=== PATIENT | female | born 1940 | race Asian ===

== ENCOUNTER 2019-06-13 15:07 | Inpatient (IN) | payer MEDICARE, OTHER ==
[~2019-06-13] VITALS: Ht 152.4 cm; Wt 39.5 kg
--- NOTE | 2019-06-13 15:24 | NUR ---
PT IS IN ROOM #2A. DR RUIZ EVALUATED THE PT.
[2019-06-13] MEDS ORDERED: NITROGLYCERIN 0.4 MG/TAB BOTTLE SL ONE (15:30)
[2019-06-13 15:32] LABS: BASOPHILS # (AUTO) 0.2 K/uL (0.0-8.0); BASOPHILS % (AUTO) 0.9 % (0.0-2.0); EOSINOPHILS # (AUTO) 0.2 K/uL (0.0-0.7); HEMOGLOBIN 8.5 g/dL (10.9-14.3); LYMPHOCYTES # (AUTO) 2.2 K/uL (20.0-40.0); LYMPHOCYTES % (AUTO) 11.7 % (20.5-51.5); MEAN CORPUSCULAR HGB CONC 33 g/dL (32.3-35.6); MEAN CORPUSCULAR VOLUME 109.8 fL (75.5-95.3); MONOCYTES # (AUTO) 0.7 K/uL (2.0-10.0); MONOCYTES % (AUTO) 3.7 % (0.0-11.0); NEUTROPHILS # (AUTO) 15.4 K/uL (1.8-8.9); NEUTROPHILS % (AUTO) 82.7 % (38.5-71.5); PLATELET COUNT (AUTO) 281 K/uL (179-408); WHITE BLOOD COUNT (AUTO) 18.6 K/uL (3.8-11.8)
[2019-06-13 15:40] LABS: CREATININE 0.8 mg/dL (0.6-1.3); POTASSIUM 4.2 mmol/L (3.5-5.1)
[2019-06-13] MEDS ORDERED: ISOS30TA6 PO (15:43)
[2019-06-13] MEDS ORDERED: HYDR500C2 PO (15:43)
[2019-06-13] MEDS ORDERED: LORA10TA7 PO (15:43)
[2019-06-13] MEDS ORDERED: DIGO125T PO (15:43)
[2019-06-13] MEDS ORDERED: OMEG1CAP PO (15:43)
[2019-06-13] MEDS ORDERED: LEVO100T PO (15:43)
[2019-06-13] MEDS ORDERED: CALC-1204 PO (15:43)
[2019-06-13 15:47] LABS: RED BLOOD CELL COUNT(AUTO) 2.37 MIL/uL (3.63-4.92)
[2019-06-13] MEDS ORDERED: MAGNESIUM HYDROXIDE 30 ML LIQUID UDC PO PRN (17:15)
[2019-06-13] MEDS ORDERED: Z GUARD REMEDY PASTE 57 GM TUBE TOP PRN (17:15)
[2019-06-13] MEDS ORDERED: HYDROCODONE/APAP 5-325MG TABLET PO PRN (17:15)
[2019-06-13] MEDS ORDERED: ACETAMINOPHEN 325 MG TABLET PO PRN (17:15)
[2019-06-13] MEDS ORDERED: MORPHINE SULFATE 2 MG/1 ML DISP.SYRIN IV ONE (17:15)
[2019-06-13] MEDS ORDERED: ONDANSETRON 4 MG/2 ML VIAL IV PRN (17:15)
[2019-06-13 17:29] LABS: BAND % (MANUAL) 2 % (0-10); EOSINOPHILS % (MANUAL) 2 % (0-8); LYMPHOCYTES % (MANUAL) 14 % (20-40); MONOCYTES % (MANUAL) 1 % (2-10); MYELOCYTES % 1 % (0-0); NEUTROPHILS % (MANUAL) 80 % (42-75)
--- NOTE | 2019-06-13 17:50 | NUR ---
report was given to test and turn up technician. pt was transfered to room #319.
[2019-06-13 18:25] VITALS: BP 129/46
--- NOTE | 2019-06-13 20:00 | NUR ---
Admitted 79y/o F under the care of Soren KNOWLES. Dx: r/o ACS. Patient is A&Ox4. No complaints of chest pain at this time. LFA heplock intact and patent. Oriented patient to her room and w/ the use of call light. Admission protocol initiated. Safety measures observed. Call light in reach
[2019-06-13 20:58] VITALS: BP 112/49
[2019-06-13] MEDS ORDERED: ATORVASTATIN 20 MG TABLET PO SCH (21:00)
[2019-06-14 00:47] VITALS: BP 108/50
[2019-06-14 04:48] VITALS: BP 107/46
[2019-06-14 06:34] LABS: BASOPHILS # (AUTO) 0.2 K/uL (0.0-8.0); BASOPHILS % (AUTO) 1.2 % (0.0-2.0); EOSINOPHILS # (AUTO) 0.1 K/uL (0.0-0.7); EOSINOPHILS % (AUTO) 0.8 % (0.0-7.0); HEMATOCRIT 23.8 % (31.2-41.9); HEMOGLOBIN 7.7 g/dL (10.9-14.3); LYMPHOCYTES # (AUTO) 1.8 K/uL (20.0-40.0); LYMPHOCYTES % (AUTO) 12.4 % (20.5-51.5); MEAN CORPUSCULAR HGB CONC 33 g/dL (32.3-35.6); MEAN CORPUSCULAR VOLUME 107.5 fL (75.5-95.3); MONOCYTES # (AUTO) 0.5 K/uL (2.0-10.0); MONOCYTES % (AUTO) 3.6 % (0.0-11.0); NEUTROPHILS # (AUTO) 12.2 K/uL (1.8-8.9); PLATELET COUNT (AUTO) 263 K/uL (179-408); WHITE BLOOD COUNT (AUTO) 14.8 K/uL (3.8-11.8)
[2019-06-14 06:41] LABS: RED BLOOD CELL COUNT(AUTO) 2.21 MIL/uL (3.63-4.92)
--- NOTE | 2019-06-14 06:41 | NUR ---
Patient slept well throughout the night. No complaints of chest pain at this time. NPO post midnight for scheduled cardiac CTA at [facility] today at around 12noon. All needs attended. Will endorse accordingly
[2019-06-14 06:51] LABS: CREATININE 0.9 mg/dL (0.6-1.3); MAGNESIUM 2.3 mg/dL (1.8-2.4); PHOSPHOROUS 4.8 mg/dL (2.5-4.9); POTASSIUM 3.8 mmol/L (3.5-5.1)
[2019-06-14] MEDS ORDERED: LEVOTHYROXINE SODIUM 100 MCG TABLET PO SCH (07:00)
[2019-06-14] MEDS ORDERED: LEVOTHYROXINE SODIUM 125 MCG TABLET PO SCH (07:00)
--- NOTE | 2019-06-14 08:00 | NUR ---
Pt. resting in bed alert oriented x4. IV in L Forearm 20 gauge intact patent saline lock. Pt. is on NPO diet since midnight for cardiac cta today at 12 pm. Pt. on room air. Pt. denies pain/ discomfort. Pt. denies SOB/ difficulty breathing. Pt. on tele monitor sinus em HR 50. Safety measures in place. Call light within reach. Will continue to monitor pt.
[2019-06-14 08:54] LABS: BAND % (MANUAL) 2 % (0-10); EOSINOPHILS % (MANUAL) 1 % (0-8); LYMPHOCYTES % (MANUAL) 13 % (20-40); MONOCYTES % (MANUAL) 4 % (2-10); NEUTROPHILS % (MANUAL) 80 % (42-75)
[2019-06-14] MEDS ORDERED: ISOSORBIDE MONONITRATE 30 MG TAB.SR.24H PO SCH (09:00)
[2019-06-14] MEDS: ISOSORBIDE MONONITRATE 30 MG TAB.SR.24H PO SCH ×2 (09:00→10:55)
[2019-06-14] MEDS: DIGOXIN 125 MCG TABLET PO SCH ×2 (09:00→10:55)
[2019-06-14] MEDS ORDERED: LORATADINE 10 MG TABLET PO SCH (09:00)
[2019-06-14] MEDS ORDERED: ASPIRIN 81 MG TAB.CHEW PO SCH ×2 (09:00)
[2019-06-14] MEDS ORDERED: OMEGA-3 FATTY ACIDS/FISH OIL CAPSULE PO SCH (09:00)
[2019-06-14] MEDS ORDERED: DIGOXIN 125 MCG TABLET PO SCH (09:00)
[2019-06-14] MEDS ORDERED: HYDROXYUREA 500 MG CAPSULE PO SCH (09:00)
[2019-06-14] MEDS ORDERED: ATOR20TA PO (10:54)
[2019-06-14] MEDS ORDERED: LEVO125T8 PO (10:54)
[2019-06-14] MEDS ORDERED: ASPI81TA31 PO (10:54)
--- NOTE | 2019-06-14 11:21 | NUR ---
Spoke to hospitalist ELENI Doty regarding low BP and pt. has digoxin and isosobride. She instructed me to give pt. both medications despite low BP as this is normal BP for pt. Administered medications. Will continue to monitor pt.
[2019-06-14 11:30] VITALS: BP 115/46
[2019-06-14 15:35] VITALS: BP 97/40
--- NOTE | 2019-06-14 18:23 | NUR ---
Pt. to be discharged to [facility]. Pt. is aware of plan of care and discharge. Pt. is to be picked up by ambulance and will go to bed 535 at [facility]. Called and provided report to MIRZA Steve. Case Management set up discharge and spoke to daughter. All discharge papers signed. Belongings list signed as well as all belongings with pt. Pt. is leaving with IV in per request of MIRZA Steve.
== END 2019-06-14 21:07 | disposition short-term general hospital (02) | DRG 311 ==
LOC: ER 15:09 → TELE3 17:37 → MEDSURG3 06-14 15:21
PROVIDERS: ADMIT Nurse Practitioner Acute Care; ATTEND Nurse Practitioner Acute Care
DX: I24.9 Acute ischemic heart disease, unspecified (principal); I47.1 Supraventricular tachycardia; I25.119 Atherosclerotic heart disease of native coronary artery with unspecified angina pectoris; E03.9 Hypothyroidism, unspecified; Z79.890 Hormone replacement therapy; D46.9 Myelodysplastic syndrome, unspecified; D63.8 Anemia in other chronic diseases classified elsewhere; Z79.899 Other long term (current) drug therapy; Z87.442 Personal history of urinary calculi; I51.7 Cardiomegaly; R79.89 Other specified abnormal findings of blood chemistry
CPT/HCPCS: 36415; 70030-TC; 71045; 83735; 84100; 84443; 85025; 93005; A4663; G0378

== ENCOUNTER 2019-09-10 11:39 | Inpatient (IN) | payer OTHER ==
[~2019-09-10] VITALS: Ht 152.4 cm; Wt 39.0 kg
[2019-09-10] MEDS ORDERED: IV NORMAL SALINE 500 ML BAG IV ONE (12:15)
[2019-09-10 12:24] LABS: BASOPHILS # (AUTO) 0.2 K/uL (0.0-8.0); BASOPHILS % (AUTO) 1.3 % (0.0-2.0); EOSINOPHILS # (AUTO) 0.2 K/uL (0.0-0.7); HEMATOCRIT 28.6 % (31.2-41.9); HEMOGLOBIN 9.4 g/dL (10.9-14.3); LYMPHOCYTES # (AUTO) 1.9 K/uL (20.0-40.0); LYMPHOCYTES % (AUTO) 10.3 % (20.5-51.5); MEAN CORPUSCULAR HGB CONC 33 g/dL (32.3-35.6); MEAN CORPUSCULAR VOLUME 100.5 fL (75.5-95.3); MONOCYTES % (AUTO) 5.3 % (0.0-11.0); NEUTROPHILS # (AUTO) 15.5 K/uL (1.8-8.9); NEUTROPHILS % (AUTO) 82.1 % (38.5-71.5); PLATELET COUNT (AUTO) 409 K/uL (179-408); RED BLOOD CELL COUNT(AUTO) 2.84 MIL/uL (3.63-4.92); WHITE BLOOD COUNT (AUTO) 18.8 K/uL (3.8-11.8)
[2019-09-10 12:26] LABS: CARBON DIOXIDE 28 mmol/L (21-32); CHLORIDE 105 mmol/L (98-107); GLUCOSE 111 mg/dL (74-106); POTASSIUM 4.3 mmol/L (3.5-5.1); UREA NITROGEN, BLOOD 17 mg/dL (7-18)
[2019-09-10 12:33] LABS: ALANINE AMINOTRANSFERASE 12 U/L (14-59); ALKALINE PHOSPHATASE 94 U/L (50-136); ASPARTATE AMINOTRANSFERASE 16 U/L (15-37); BILIRUBIN,TOTAL 0.6 mg/dL (0.2-1.0); TOTAL PROTEIN, SERUM 7.6 g/dL (6.4-8.2)
[2019-09-10 12:40] LABS: BILIRUBIN,DIRECT < 0.1 mg/dL (0.0-0.2)
--- NOTE | 2019-09-10 12:50 | NUR ---
Pt is resting in bed, talking to her daughter,NAD noted.
--- NOTE | 2019-09-10 13:00 | NUR ---
Paged [employer] for admit to Tele. Awaiting call back from Dr hawthorne.
[2019-09-10 13:04] LABS: BAND % (MANUAL) 2 % (0-10); BASOPHILS % (MANUAL) 1 % (0-2); EOSINOPHILS % (MANUAL) 1 % (0-8); LYMPHOCYTES % (MANUAL) 7 % (20-40); METAMYELOCYTES % 1 % (0-1); MONOCYTES % (MANUAL) 7 % (2-10); MYELOCYTES % 2 % (0-0); NEUTROPHILS % (MANUAL) 78 % (42-75)
[2019-09-10 13:09] LABS: REACTIVE LYMPHOCYTES 1 % (0-0)
--- NOTE | 2019-09-10 13:10 | NUR ---
Dr Ramos spoke to (Juan Jose Haji ), Pt's insurance MD. Awaiting for INFO for possible transfer.
--- NOTE | 2019-09-10 14:45 | NUR ---
Patient is resting comfortably in bed with eyes closed, NAD noted.
--- NOTE | 2019-09-10 15:59 | NUR ---
Dalia pride in EDM - 09/10/19 at 1600 by MARIELA PT UNABLE TO RECALL COMPLETE MEDS AND DOSAGES AT THIS TIME.
--- NOTE | 2019-09-10 15:59 | NUR ---
PT UNABLE TO RECALL COMPLETE MEDS AND DOSAGES AT THIS TIME.
[2019-09-10 16:23] VITALS: BP 110/52
--- NOTE | 2019-09-10 18:45 | NUR ---
183 Received report of pt from Clarisa BLUEteam leader surgery. Pt alert and oriented x 4. Pt sinus em @ 54 hr. Digoxin level WNL. Pt denies any c/o pain. PT is in no acute distress and asymptomatic. VSS 110/54- hr 54resp 20 o2 sat 99% temp 98.6. Pt states "my skin is good i dont have any open wound". Unable to do full skin assessment per pt's request and refused to turn on her side. IV on left f/a #20 HL. EMT here to chart picker patient. Report GIVEN to MALLORIE [id number] at receiving facilty RM [address] [facility]. Receiving doctor ZOË. 185 Pt left with EMT. FULL CODE
== END 2019-09-10 18:55 | disposition short-term general hospital (02) | DRG 312 ==
LOC: ER 11:39 → TELE3 16:14
PROVIDERS: ADMIT Internal Medicine; ATTEND Internal Medicine
DX: R55 Syncope and collapse (principal); Z68.1 Body mass index [BMI] 19.9 or less, adult; R00.1 Bradycardia, unspecified; D46.9 Myelodysplastic syndrome, unspecified; I25.10 Atherosclerotic heart disease of native coronary artery without angina pectoris; E03.9 Hypothyroidism, unspecified; Z79.890 Hormone replacement therapy; Z87.442 Personal history of urinary calculi; Z90.49 Acquired absence of other specified parts of digestive tract
CPT/HCPCS: 36415; 70030-TC; 70450; 71045; 85025; 85730; 93005; A4663; G0378; J7040